=== PATIENT | male | born 1970 | race African-American/Black ===

== ENCOUNTER 2019-01-19 01:49 | Emergency (ER) | payer MEDICAID ==
[~2019-01-19] VITALS: Ht 188 cm; Wt 102.1 kg
[2019-01-19] MEDS ORDERED: cefTRIAXone 1GM/50ML D5W 50 ML IV ONE (04:45)
[2019-01-19 04:50] VITALS: BP 134/80
== END 2019-01-19 06:37 | disposition home or self-care (01) ==
LOC: ER 01:53
DX: S31.23XA Puncture wound without foreign body of penis, initial encounter (principal); W23.0XXA Caught, crushed, jammed, or pinched between moving objects, initial encounter; Y93.89 Activity, other specified; Y92.091 Bathroom in other non-institutional residence as the place of occurrence of the external cause; Y99.8 Other external cause status
CPT/HCPCS: 96365; 99283; J0696

== ENCOUNTER 2021-09-03 17:15 | Emergency (ER) | payer SELFPAY ==
[~2021-09-03] VITALS: Ht 188 cm; Wt 104.0 kg
[2021-09-03 17:29] VITALS: BP 133/73
[2021-09-03] MEDS ORDERED: FLUORESCEIN SOD OPTH TEST STRIP RIGHTEYE ONE (22:15)
[2021-09-03] MEDS ORDERED: TETRACAINE HCL 0.5% OPTH(EYE) SOLN 4ML RIGHTEYE ONE (22:15)
[2021-09-03] MEDS ORDERED: CIP03OS RIGHTEYE (23:09)
== END 2021-09-03 23:36 | disposition home or self-care (01) ==
LOC: ER 17:15
DX: S05.01XA Injury of conjunctiva and corneal abrasion without foreign body, right eye, initial encounter (principal); Z79.2 Long term (current) use of antibiotics; X58.XXXA Exposure to other specified factors, initial encounter; Y93.89 Activity, other specified; Y92.89 Other specified places as the place of occurrence of the external cause; Y99.8 Other external cause status